=== PATIENT | female | born 1980 | race African-American/Black ===

== ENCOUNTER → 2016-02-27 | Outpatient (CLI) | payer MEDICAID ==
[~2016-02-27] MED LIST: ALBU6.7H INH; ALBUAER3 INH; CYCL5TAB PO; DIFL150T PO; LORA10TA PO; ZITH250T PO
--- NOTE | 2016-02-28 14:23 | EKG ---
Date Performed: 02/27/2016 Time Performed: 12:24:16 PTAGE: 35 years EKG: Sinus rhythm NORMAL ECG Compared to prior tracing no significant change PREVIOUS TRACING : 02/01/2014 20.08 DOCTOR: Ignacio Post Interpretating Date/Time 02/28/2016 14:21:03
== END ==
LOC: HCAV 12:11
PROVIDERS: ATTEND Internal Medicine
DX: I10 Essential (primary) hypertension (principal)
CPT/HCPCS: 93005

== ENCOUNTER 2016-06-27 11:15 | Emergency (ER) | payer OTHER, MEDICAID ==
[~2016-06-27] VITALS: Ht 170.2 cm; Wt 68.0 kg
[~2016-06-27 11:15] MED LIST changes: -ALBUAER3 INH; -CYCL5TAB PO; -LORA10TA PO
[2016-06-27 11:17] VITALS: BP 124/74; PULSE 77; RESP 14; TEMP 98.1; O2SAT 100
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
[2016-06-27] MEDS ORDERED: CYCL5TAB PO (11:29)
[2016-06-27] MEDS ORDERED: LORA10TA PO (11:34)
== END 2016-06-27 11:53 | disposition home or self-care (01) ==
LOC: NEPK 11:15
DX: S39.012A Strain of muscle, fascia and tendon of lower back, initial encounter (principal); S29.012A Strain of muscle and tendon of back wall of thorax, initial encounter; I10 Essential (primary) hypertension; J45.909 Unspecified asthma, uncomplicated; F17.210 Nicotine dependence, cigarettes, uncomplicated; V43.52XA Car driver injured in collision with other type car in traffic accident, initial encounter; Y93.89 Activity, other specified; Y92.410 Unspecified street and highway as the place of occurrence of the external cause; Y99.8 Other external cause status
CPT/HCPCS: 99283

== ENCOUNTER 2016-07-29 02:44 | Emergency (ER) | payer MEDICAID, OTHER ==
[~2016-07-29 02:44] MED LIST changes: -ALBU6.7H INH; +CYCL5TAB PO; -DIFL150T PO; +LORA10TA PO; -ZITH250T PO
[2016-07-29 02:46] VITALS: BP 143/78; PULSE 84; RESP 22; TEMP 98.5; O2SAT 97
[2016-07-29] MEDS ORDERED: DEXAMETHASONE SOD PHOS 4 MG/ML VIAL IM ONE (03:15)
[2016-07-29] MEDS ORDERED: SODIUM CHLORIDE 0.9% FLUSH 10 ML FLUSH IVF PRN (03:15)
[2016-07-29] MEDS ORDERED: ALBUAER3 INH (03:24)
--- NOTE | 2016-07-29 03:25 | PD ---
HPI Chief Complaint: Respiratory Distress Time Seen by Provider: 03:05 Travel History International Travel<30 days: No Contact w/Intl Traveler<30days: No Traveled to known affect area: No History of Present Illness HPI 36 yo F c/o dyspnea and wheezing for a few days, gradually worsening, at home inhaler not helpful, + cough, + chest tightness. No fever. Pt smokes tobacco. She reports hx asthma. Location pulmonary. Timing constant. PFSH Past Medical History Asthma: Yes Diminished Hearing: No Hypertension: Yes (3RD TRIMESTER OF ) Respiratory: Yes (BRONCHITIS) Immunizations Current: No ?: Not Menopausal: No : 5 Para: 3 Miscarriage: 1 : 1 Dilation and Curettage (D&C): Yes Tubal Ligation: Yes Past Surgical History Abdominal Surgery: Yes (INGUINAL HERNIA REMOVED) Gynecologic Surgery: Yes (D&C 2001, tubal ligation ) Social History Alcohol Use: Yes (SOCIALLY) Tobacco Use: Yes (1-2 CIGS/DAY) Substance Use: No Allergies-Medications (Allergen,Severity, Reaction): Coded Allergies: Penicillin (Verified Allergy, Severe, RASH/ITCHING, 07/29/16) Reported Meds & Prescriptions Reported Meds & Active Scripts Active Proair Hfa 8.5 GM Inh (Albuterol Sulfate) 90 Mcg/Act Aer 2 Puff INH Q6H PRN 108 mcg/actuation Review of Systems Except as stated in HPI: all other systems reviewed are Neg Physical Exam Narrative GENERAL: 36 yo F, pleasant, WNWD SKIN: Focused skin assessment warm/dry. HEAD: Atraumatic. Normocephalic. EYES: Pupils equal and round. No scleral icterus. No injection or drainage. ENT: No nasal bleeding or discharge. Mucous membranes pink and moist. NECK: Trachea midline. No JVD. CARDIOVASCULAR: Regular rate and rhythm. No murmur appreciated. RESPIRATORY: Wheezing bilaterally. Minimal accessory muscle use. GASTROINTESTINAL: Abdomen soft, non-tender, nondistended. Hepatic and splenic margins not palpable. MUSCULOSKELETAL: No obvious deformities. No clubbing. No cyanosis. No edema. NEUROLOGICAL: Awake and alert. No obvious cranial nerve deficits. Motor grossly within normal limits. Normal speech. PSYCHIATRIC: Appropriate mood and affect; insight and judgment normal. Data Data Last Documented VS Vital Signs Date Time Temp Pulse Resp B/P Pulse Ox O2 Delivery O2 Flow Rate FiO2 07/29/16 04:18 88 18 130/79 98 07/29/16 02:46 98.5 Room Air VS reviewed Orders Ecg Monitoring (07/29/16 03:11) Oximetry (07/29/16 03:11) Oxygen Administration (07/29/16 03:11) Sodium Chloride 0.9% Flush (Ns Flush) (07/29/16 03:15) Albuterol-Ipratropium Neb (Duoneb Neb) (07/29/16 03:15) Dexamethasone Inj (Decadron Inj) (07/29/16 03:15) Dexamethasone (Decadron) (07/29/16 03:45) MDM Medical Decision Making Medical Screen Exam Complete: Yes Emergency Medical Condition: Yes Medical Record Reviewed: Yes Differential Diagnosis Asthma, bronchitis, COPD Narrative Course Reassessment at 444AM the patient is resting comfortably and feels better, is alert and in no distress. The patients results and examination findings were discussed. The repeat examination is unremarkable and benign. The history, exam , diagnostic testing, and current condition do not suggest any significant pathology to warrant further testing, continued ED treatment, admission, or surgical evaluation at this point. The vital signs have been stable. The patient does not have uncontrollable pain, intractable vomiting, or other significant symptoms. The patient's condition is stable and appropriate for discharge. The patient will pursue further outpatient evaluation with a primary care physician or other designated or consulting physician as indicated in the discharge instructions. The patient expressed understanding and was agreeable with this plan. Diagnosis Primary Impression: Wheezing Referrals: DR SMITH 2 days Additional Instructions: You have a choice when it comes to health care, and we are glad that you chose [facility]. Hopefully, we have met your expectations on today's visit. You are welcome to return to [facility] at any time, as we are committed to meeting the health care needs of our community. Med/Other Pt SpecificInfo: Prescription(s) given Scripts Albuterol 8.5 GM Inh (Proair Hfa 8.5 GM Inh)90 Mcg/Act Aer2 Puff INH Q6H PRN ( SHORTNESS OF BREATH) #1 INHALER Ref 0 108 mcg/actuation Prov:Feliciano Banks MD 07/29/16 Disposition: 01 DISCHARGE HOME Condition: Stable Feliciano Banks MD Jul 29, 2016 03:25
[2016-07-29] MEDS: RESP: ALBUTEROL 2.5 MG/IPRATROPIUM 0.5 MG NEB (SCH) INH ×2 (03:31→03:32)
[2016-07-29] MEDS ORDERED: DEXAMETHASONE 6 MG TAB PO ONE (03:45)
[2016-07-29 04:18] VITALS: BP 130/79; PULSE 88; RESP 18; O2SAT 98
== END 2016-07-29 04:55 | disposition home or self-care (01) ==
LOC: NEPC 02:44
DX: R06.2 Wheezing (principal); F17.210 Nicotine dependence, cigarettes, uncomplicated
CPT/HCPCS: 94640; 94664; 99285; J8540

== ENCOUNTER 2016-08-16 12:11 | Emergency (ER) | payer OTHER, MEDICAID ==
[~2016-08-16] VITALS: Ht 170.2 cm; Wt 66.0 kg
[~2016-08-16 12:11] MED LIST changes: +ALBUAER3 INH; -CYCL5TAB PO; -LORA10TA PO
[2016-08-16 12:13] VITALS: BP 139/85; PULSE 114; RESP 16; TEMP 98.2; O2SAT 98
[2016-08-16] MEDS ORDERED: ACETAMINOPHEN 325 MG TAB PO ONE (12:45)
[2016-08-16] MEDS ORDERED: IBUPROFEN 800 MG TAB PO ONE (12:45)
[2016-08-16] MEDS ORDERED: ZANT150T2 PO (12:48)
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
[2016-08-16] MEDS ORDERED: CYCL1TAB29 PO (13:47)
[2016-08-16] MEDS ORDERED: FLUT1SPR5 EACH NARE (13:47)
[2016-08-16] MEDS ORDERED: NON-500T13 PO (13:47)
[2016-08-16] MEDS ORDERED: AMOX875T PO (13:47)
[2016-08-16] MEDS ORDERED: IBUP-232 PO (13:47)
[2016-08-16] MEDS ORDERED: BACT800T5 PO (13:54)
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
== END 2016-08-16 14:30 | disposition home or self-care (01) ==
LOC: NEPK 12:11
DX: T14.8 Other injury of unspecified body region (principal); J01.00 Acute maxillary sinusitis, unspecified; V49.49XA Driver injured in collision with other motor vehicles in traffic accident, initial encounter; Y92.410 Unspecified street and highway as the place of occurrence of the external cause; Z88.0 Allergy status to penicillin
CPT/HCPCS: 70450; 70486